=== PATIENT | female | born 1950 | race Caucasian/White ===

== ENCOUNTER 2016-08-22 10:02 | Day surgery (SDC) | payer MEDICARE, BC ==
[~2016-08-22] VITALS: Ht 152.4 cm; Wt 82.6 kg
[2016-08-22] MEDS ORDERED: NORVASC 10MG10 MG PO (10:23)
[2016-08-22] MEDS ORDERED: PRAVACHOL 20MG20 MG PO (10:23)
[2016-08-22] MEDS ORDERED: METOPROLOL SUCC ER 2 PO (10:24)
[2016-08-22] MEDS ORDERED: AMARYL 2MG T2 MG/TAB PO (10:24)
[2016-08-22] MEDS ORDERED: ZOLOFT 50MG50 MG PO (10:25)
[2016-08-22] MEDS ORDERED: TENEX2 MG PO (10:25)
[2016-08-22] MEDS ORDERED: ASPIRIN E.C. 8181 MG PO (10:26)
[2016-08-22 10:53] VITALS: BP 159/78; PULSE 80; TEMP 97.8
[2016-08-22 13:40] VITALS: BP 110/54; PULSE 79; TEMP 97.6
[2016-08-22 13:55] VITALS: BP 108/50; PULSE 73
[2016-08-22 14:05] VITALS: BP 113/57; PULSE 80
[2016-08-22 14:20] VITALS: BP 115/63; PULSE 77
[2016-08-22] MEDS ORDERED: NORCO 325 MG-51 TAB PO (14:37)
[2016-08-22 15:54] VITALS: BP 112/68; PULSE 80; TEMP 99
== END 2016-08-22 15:30 | disposition home or self-care (01) ==
LOC: SDCO 10:02 → COL.RAD 11:00 → SDCO 12:00
DX: D24.2 Benign neoplasm of left breast (principal); L82.1 Other seborrheic keratosis; Z80.3 Family history of malignant neoplasm of breast
CPT/HCPCS: J0690; J1100; J1885; J2405; J2704; J3010; J7120

== ENCOUNTER → 2017-12-06 | Outpatient (CLI) | payer MEDICARE, BC ==
[~2017-12-06] MED LIST: AMARYL 2MG T2 MG/TAB PO; ASPIRIN E.C. 8181 MG PO; METOPROLOL SUCC ER 2 PO; NORCO 325 MG-51 TAB PO; NORVASC 10MG10 MG PO; PRAVACHOL 20MG20 MG PO; TENEX2 MG PO; ZOLOFT 50MG50 MG PO
== END ==
LOC: MC.RAD 11-14 10:00
DX: R92.0 Mammographic microcalcification found on diagnostic imaging of breast (principal)

== ENCOUNTER 2019-12-26 07:20 | Day surgery (SDC) | payer MEDICARE, BC ==
[~2019-12-26] VITALS: Ht 152.4 cm; Wt 81.8 kg
[~2019-12-26 07:20] MED LIST changes: -METOPROLOL SUCC ER 2 PO; +TOPROL XL 25MG25 MG PO
[2019-12-26 07:40] VITALS: BP 149/85; PULSE 77; TEMP 97.8
[2019-12-26] MEDS ORDERED: VITAMIN D31000 I1 PO (08:09)
[2019-12-26] MEDS ORDERED: ZOLOFT 100MG100 MG PO (08:09)
[2019-12-26] MEDS ORDERED: SINEMET CR1 UDTAB.S1 PO (08:10)
[2019-12-26 09:38] VITALS: BP 105/47; PULSE 76; TEMP 97.7
--- NOTE | 2019-12-26 09:38 | NUR ---
The patient arrived back to [facility] from the operating room at this time. The patient appears drowys but arouses easily to her name. The patient's oxygen was weaned down to 2L at this time. The patient's post operative vital signs were started at this time. The patient's granddaughter is present at her bedside. Call light is within reach. Will continue to monitor the patient.
[2019-12-26 09:53] VITALS: BP 111/56; PULSE 71
--- NOTE | 2019-12-26 09:53 | NUR ---
The patient appears more alert at this time. She agrees to try some ice water at this time. Vital signs appear stable. Call light remains within reach. The patient does report some abdominal discomfort at this time. Will continue to monitor the patient.
[2019-12-26 10:08] VITALS: BP 97/63; PULSE 65
--- NOTE | 2019-12-26 10:08 | NUR ---
The patient appears to be tolerating the water well. Her granddaughter remains at her beside. Will continue to monitor the patient.
--- NOTE | 2019-12-26 10:23 | NUR ---
The patient continues to report increased abdominal pain and was given a PRN dose of [place] one tab at this time. The patient verbalizes a desire to be discharged home with her next vital sign check.
[2019-12-26 10:26] VITALS: BP 115/60; PULSE 63
[2019-12-26 10:45] VITALS: BP 121/59; PULSE 70
--- NOTE | 2019-12-26 10:45 | NUR ---
Discharge instructions were reviewed with the patient and her granddaughter at this time. They both verbalized understanding and has no questions for the nurse at this time. The patient's IV to her left hand was removed and a pressure dressing was applied to the site. The patient's granddaughter is going to assist her to get dressed.
--- NOTE | 2019-12-26 10:55 | NUR ---
The patient was escorted out via wheelchair to a privte vehicle by HUGO Pierson. The patient's belongings and discharge paperwork were sent with her. The patient's granddaughter is present to drive her home.
== END 2019-12-26 10:55 | disposition home or self-care (01) ==
LOC: SDCO 07:20
DX: T19.8XXA Foreign body in other parts of genitourinary tract, initial encounter (principal); I10 Essential (primary) hypertension; G20 Parkinson's disease; E11.9 Type 2 diabetes mellitus without complications; G70.9 Myoneural disorder, unspecified; R20.2 Paresthesia of skin; F32.9 Major depressive disorder, single episode, unspecified; F41.9 Anxiety disorder, unspecified; Z79.84 Long term (current) use of oral hypoglycemic drugs; Z88.2 Allergy status to sulfonamides; Z79.899 Other long term (current) drug therapy; Z79.82 Long term (current) use of aspirin
CPT/HCPCS: C1769; J0690; J2704; J3010; J7030

== ENCOUNTER 2020-08-21 16:18 | Day surgery (SDC) | payer MEDICARE, BC ==
[~2020-08-21] VITALS: Ht 152.4 cm; Wt 82.0 kg
[2020-08-21] VITALS (10 sets, daily range): BP systolic 103–130; BP diastolic 32–77; PULSE 89–97; TEMP 97.3–98.7
[~2020-08-21 16:18] MED LIST changes: -AMARYL 2MG T2 MG/TAB PO; +AMARYL4 MG PO; +SINEMET CR1 UDTAB.S1 PO; +VITAMIN D31000 I1 PO; +ZOLOFT 100MG100 MG PO
[2020-08-21] MEDS ORDERED: ASPIRIN 81M81 MG/TA2 PO (16:40)
--- NOTE | 2020-08-21 17:10 | NUR ---
Patient is going for her surgery at this time. Consent signed and placed on chart. Medications updated. Did not have time to complete admission assessment before she left. IVF's infusing to R AC. Patient was having a lot of nausea, zofran given. Notified Granddaughter/caregiver that patient is on her way to surgery.
[2020-08-21] MEDS ORDERED: NORCO 325 MG-51 TAB PO (17:23)
[2020-08-21] MEDS ORDERED: PYRIDIUM 100MG100 MG PO (17:23)
--- NOTE | 2020-08-21 18:30 | NUR ---
Patient is back from surgery. She denies nausea. Her O2 saturation is 94% on 3l of oxygen. Patient denies pain. Her Granddaughter is asking about her discharging. Explained patient needs to eat and void before leaving if she leaves tonight. No other changes at this time. Call light within reach.
--- NOTE | 2020-08-21 22:00 | NUR ---
PATIENT RESTING IN BED. NO COMPLAINTS OF PAIN OR NAUSEA. STILL REQUIRING OXYGEN VIA NASAL CANNULA. GOT UP TO VOID ON THE BEDSIDE COMMODE. NO OTHER NEEDS AT THIS TIME. CALL LIGHT IS WITHIN REACH.
[2020-08-22 04:43] VITALS: BP 120/51; PULSE 79; TEMP 98.1
--- NOTE | 2020-08-22 06:16 | NUR ---
PATIENT ON 1 L OF OXYGEN VIA NASAL CANNULA AT 92%.
[2020-08-22 07:14] VITALS: BP 118/50; PULSE 82; TEMP 97.9
--- NOTE | 2020-08-22 09:00 | NUR ---
Patient alert and oriented, answers questions appropriately. See assessment. No c/o urinary burning, frequency or hesitancy. Reports clear urine. No flank or abdominal pain. No other c/o at this time.
--- NOTE | 2020-08-22 11:00 | NUR ---
Discharge instructions reviewed with patient, verbalized understanding. Discharged via wheelchair to auto/home with family at 1100.
== END 2020-08-22 11:00 | disposition home or self-care (01) ==
LOC: SDCO 16:18 → SURG 16:20 → SDCO 08-22 11:00
DX: N13.2 Hydronephrosis with renal and ureteral calculous obstruction (principal); I10 Essential (primary) hypertension; G20 Parkinson's disease; E11.9 Type 2 diabetes mellitus without complications; E78.5 Hyperlipidemia, unspecified; F32.9 Major depressive disorder, single episode, unspecified; F41.9 Anxiety disorder, unspecified; M19.90 Unspecified osteoarthritis, unspecified site; Z79.899 Other long term (current) drug therapy; Z79.82 Long term (current) use of aspirin; Z88.2 Allergy status to sulfonamides; Z96.653 Presence of artificial knee joint, bilateral; Z79.84 Long term (current) use of oral hypoglycemic drugs
CPT/HCPCS: OP; C1769; C1894; C2617; J0690; J1100; J2405; J2704; J3010; J7030; Q9967

== ENCOUNTER 2020-08-24 12:54 | Observation (INO) | payer MEDICARE, BC ==
[~2020-08-24] VITALS: Ht 152.4 cm; Wt 81.8 kg
[~2020-08-24 12:54] MED LIST changes: +ASPIRIN 81M81 MG/TA2 PO; +PYRIDIUM 100MG100 MG PO
[2020-08-24 13:30] LABS: BASO % 0.3 % (0.0-2.0); EOS % 0.1 % (0-4.0); GRAN # 8.2 (1.4-6.5); GRAN % 82.9 % (42.2-75.2); HEMATOCRIT 37.9 % (37.0-47.0); HEMOGLOBIN 12.6 g/dl (12.5-16.0); LYMPH # 0.9 (1.2-3.4); LYMPH % 9.6 % (20.0-51.0); MEAN CELL VOLUME 90 fl (80.0-100.0); MEAN CORPUSCULAR HEMOGLOBIN 30 pg (27.0-31.0); MEAN CORPUSCULAR HGB CONC 33 g/dl (33.0-37.0); MEAN PLATELET VOLUME 9.7 fl (7.4-10.4); MONO # 0.7 (0.1-0.6); MONO % 6.7 % (1.7-9.3); PLATELET COUNT 165 K/mm3 (130-400); RED BLOOD COUNT 4.22 M/mm3 (4.10-5.30); REDCELL DISTRIBUTION WIDTH-CV 12.3 % (11.5-14.5)
[2020-08-24 13:42] LABS: ALBUMIN 3.7 gm/dL (3.5-5.0); BILIRUBIN,TOTAL 0.8 mg/dL (0.0-1.0); CALCIUM 10.5 mg/dL (8.4-10.2); CREATININE, serum 0.76 (0.52-1.25); POTASSIUM 4.1 mmol/L (3.4-5.0); TOTAL PROTEIN 6.5 gm/dL (6.4-8.2)
[2020-08-24 13:53] LABS: C-REACTIVE PROTEIN 13.8 mg/dL (0.0-0.9)
[2020-08-24 14:40] LABS: COLLECTION METHOD CLEAN CATCH
[2020-08-24 14:50] LABS: MUCOUS Present /lpf; PH 6 (5-8); SQUAMOUS EPITHELIAL 0-2 /hpf; URINE APPEARANCE Cloudy; URINE BACTERIA Moderate /hpf; URINE BILIRUBIN Negative (NEGATIVE); URINE BLOOD 3+ (NEGATIVE); URINE COLOR Amber; URINE GLUCOSE Negative (NEGATIVE); URINE KETONE Negative (NEGATIVE); URINE LEUKOCYTE ESTERASE 3+ (NEGATIVE); URINE NITRATE Positive (NEGATIVE); URINE PROTEIN(semi-quant) 2+ (NEGATIVE); URINE RBC >50 /hpf; URINE UROBILINOGEN >=4.0 mg/dL (NEGATIVE)
--- NOTE | 2020-08-24 21:03 | NUR ---
Pt. arrived to the floor via wheelchair. Pt. is A&OX3, assessment complete. INT to rt. forearm patent. Pt. denies pain at this time.
[2020-08-24 21:14] VITALS: BP 130/52; PULSE 92; TEMP 98.6
[2020-08-24 23:48] VITALS: BP 132/50; PULSE 91; TEMP 98.2
[2020-08-25] VITALS (12 sets, daily range): BP systolic 117–159; BP diastolic 52–73; PULSE 74–97; TEMP 97.9–98.6
--- NOTE | 2020-08-25 12:00 | NUR ---
HOSPITALIST TEAM ROUNDING AND CLEARED PATIENT FOR SURGERY. ORTHO PLANNING TO TAKE PATIENT TO THE OR TODAY. SEE ORDERS.
--- NOTE | 2020-08-25 12:30 | NUR ---
AT BEDSIDE FOR CONSULT
--- NOTE | 2020-08-25 12:33 | NUR ---
First visit from the locomotive switch operator. No needs right now.
--- NOTE | 2020-08-25 16:10 | NUR ---
PATIENT BACK IN ROOM POST OP. ORIENTED BUT DROWSY. VSS. PATIENT IS COMFORTABLE AT THIS TIME. ORDERS FOR DISCHARGE TONIGHT WHEN DISCHARGE CRITERIA IS MEET.
--- NOTE | 2020-08-25 20:00 | NUR ---
Per Dr. Brenda marquis to resume home medications for night. Clarified which medications. Orders placed.
--- NOTE | 2020-08-25 21:04 | NUR ---
Resting in bed. Assessment complete. Lungs clear. Heart sounds normal. Bowels active x4. Pulses present throughout. No edema noted. IV right forearm infusing without complications. Clear yellow urine at this time. Denies pain. Denies needs. Call light in reach.
[2020-08-26 04:24] VITALS: BP 124/65; PULSE 71; TEMP 98
--- NOTE | 2020-08-26 05:18 | NUR ---
Patient had uneventful night. Resting in bed this AM. call light in reach.
--- NOTE | 2020-08-26 07:06 | NUR ---
Report given to HUGO Back
[2020-08-26 08:36] VITALS: BP 128/55; PULSE 68; TEMP 98.2
--- NOTE | 2020-08-26 09:23 | NUR ---
Discharge instructions reviewed with patient, verbalized understanding. Discharged via wheelchair to auto/home with family at 0850.
== END 2020-08-26 08:50 | disposition home or self-care (01) ==
LOC: COL.ER 12:54 → SURG 14:16 → EDBEDREQ 19:57 → SURG 08-26 08:50
PROVIDERS: Family Medicine; ADMIT Urology
DX: Z96.0 Presence of urogenital implants (principal); N20.0 Calculus of kidney; E21.3 Hyperparathyroidism, unspecified; E78.5 Hyperlipidemia, unspecified; G89.29 Other chronic pain; F32.9 Major depressive disorder, single episode, unspecified; G20 Parkinson's disease; M19.90 Unspecified osteoarthritis, unspecified site; E11.9 Type 2 diabetes mellitus without complications; Z90.710 Acquired absence of both cervix and uterus; Z90.49 Acquired absence of other specified parts of digestive tract; Z96.652 Presence of left artificial knee joint; Z88.2 Allergy status to sulfonamides; Z79.82 Long term (current) use of aspirin; Z79.84 Long term (current) use of oral hypoglycemic drugs
CPT/HCPCS: J0690; J0696; J1885; J2270; J2405; J2704; J3010; J7030; J7120

== ENCOUNTER → 2024-01-21 | Day surgery (SDC) | payer MEDICARE, BC ==
[~2024-01-21] VITALS: Ht 152.4 cm; Wt 74.0 kg
[~2024-01-21] MED LIST changes: +AMARYL 2MG T2 MG/TAB PO; +Acetaminophen 325 MG TAB PO PRN; +Acetaminophen 500 MG TAB PO SCH; +CIPRO 500MG TA500 MG PO; +Famotidine 20 MG TAB PO SCH; +GLUCOPHAGE500 MG/TAB PO; +HYDROmorphone 1 MG/1 ML SYRINGE [PACU/SDC ONLY] IV PRN; +Hyoscyamine 0.125 MG Sublingual TAB SL PRN; +Ketorolac 30 MG/ML VIAL ONE; +LR 1,000 ML IV SCH; +Lidocaine 2% (20 MG/ML) 20 ML UROJET UR ONE; +Lidocaine PF 2% (20 MG/ML) 5 ML VIAL ONE; +Morphine 4 MG/ML VIAL IV PRN; +NS 10 ML IV ONE; +Naloxone 0.4 MG/ML VIAL IV PRN; +Ondansetron 4 MG/2 ML VIAL IV PRN; +Ondansetron 4 MG/2 ML VIAL ONE; +PRAVACHOL 40MG40 MG PO; +PROLIA60 MG/ML SQ; +SINEMET 25/101 UDTAB PO; +SYMMETREL100 M1 PO; +SYNTHROID0.1 MG/TAB PO; +ULTRAM 50MG TAB50 MG PO; +dexAMETHasone 10 MG/ML VIAL ONE; +droPERidol 2.5 MG/ML 2 ML VIAL IV PRN; +fentaNYL 50 MCG/ML 1 ML SYRINGE/VIAL [PACU/SDC ONLY] IV PRN; +fentaNYL 50 MCG/ML 2 ML VIAL ONE; +hydrALAZINE 20 MG/ML 1 ML VIAL IV PRN
--- NOTE | 2024-01-21 12:24 | NUR ---
Sal0Colleen JOSEPH RN FROM DR. CHRISTENSEN'S OFFICE CALLED STATING THAT HE WOULD BE ADMITTING PATIENT FOR KIDNEY STONE. PATIENT WAS TOLD TO ARRIVE AT HOSPITAL AT 1430, WITH AN ESTIMATED PROCEDURE TIME OF 1630 AND WILL PLAN TO DISCHARGE FOLLOWING THE PROCEDURE.
[2024-01-21 15:20] VITALS: BP 152/90; PULSE 93; TEMP 97.7
[2024-01-21 17:00] VITALS: BP_SYST 127
[2024-01-21 17:30] VITALS: BP 127/69; PULSE 79; TEMP 98.1
--- NOTE | 2024-01-21 17:44 | NUR ---
PT TO ROOM 331 PER BED WITH REPORT FROM [facility] @0752. PT IS A/O X4, LUNGS CTA, BOWEL SOUNDS AUDIBLE. PT DENIES PAIN OR NEEDS. IV TO RFA. DISCHARGE ORDERS RECIEVED AND WILL DISCHARGE WHEN CRITERIA MET.
[2024-01-21 17:45] VITALS: BP 122/62; PULSE 78; TEMP 98.2
[2024-01-21 18:09] VITALS: BP 134/49; PULSE 87; TEMP 98.2
== END ==
LOC: SDCO 14:18
DX: N20.2 Calculus of kidney with calculus of ureter (principal); N39.46 Mixed incontinence; I10 Essential (primary) hypertension; Z79.899 Other long term (current) drug therapy
CPT/HCPCS: C1769; C2617; J0690; J1100; J1885; J2405; J2704; J3010; J7120